=== PATIENT | male | born 1960 | race African-American/Black ===

== ENCOUNTER → 2021-07-10 | Outpatient (CLI) | payer OTHER, MEDICAID ==
[~2021-07-10] MED LIST: ALBU8.5H INH; LEVE750T5 PO; LEVOTAB10 PO; LITH300C PO; LORA2TAB14 PO; MONT10TA10 PO; QUET100T2 PO; ZOLO100T PO; ZONI100C17 PO
== END ==
LOC: M LABSMTC 10:18
PROVIDERS: ATTEND Anesthesiology
DX: Z01.812 Encounter for preprocedural laboratory examination (principal); Z20.822 Contact with and (suspected) exposure to COVID-19

== ENCOUNTER 2021-07-15 08:40 | Day surgery (SDC) | payer OTHER, MEDICAID ==
[~2021-07-15] VITALS: Ht 165.1 cm; Wt 74.8 kg
[~2021-07-15 08:40] MED LIST changes: +LIDOCAINE 2% 100MG/5ML SDV (FOR ANES.) As Ordered ONE; +NS 1,000 ML IV ONE; +fentaNYL 100 MCG/2 ML INJECTION (J3010) As Ordered ONE; +propofoL 500 MG/50 ML VIAL As Ordered ONE
--- OUTSIDE RECORDS SUMMARY | 2021-07-15 08:45 | CCD | Continuity of Care Document ---
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 Onset: 03/04/2021 Social History Type Date Description Comments Sex Unknown ETOH Use Denies alcohol use Tobacco Use Start: Unknown Patient is a current smoker, smo kes every day 1/4ppd Allergies, Adverse Reactions, Alerts Description No Known Drug Allergies Medications Active Medications SIG Qnty Indications Ordering Provide r Date Keppra 750mg Tablets 2tabs bi d Unknown Levocetirizine Dihydrochloride 5mg Tablets 1tab qd Unknown [place] Carbonate ER 300mg Tablets ER 1tab bid Unknown Lorazepam 2mg Tablets 1tab q8 h prn Unknown Seroquel 50mg Tablets 1tab qd Unknown Quetiapine Fumarate 100mg Tablets Unknown Immunizations Description No Information Available Vital Signs Date Vital Result Comment 05/06/2021 11:29am BP Systolic 118 mmHg BP Diastolic 78 mmHg Height 65 inches 5'5" Weight 160.00 lb BMI (Body Mass Index) 26.6 kg/m2 [place] Body Weight 136 lb Weight 72.576 kg BSA (Body Surface Area) 1.80 m2 Results Description No Information Available Procedures Description No Information Available Medical Devices Description No Information Available Encounters Description No Information Available Assessments Date Code Description Provider 05/06/2021 R94.5 Abnormal results of liver functi on studies Kayden Ramirez M.D. 05/06/2021 B18.2 Chronic viral hepatitis C Edgar Ramirez M.D. 05/06/2021 Z12.11 Encounter for screening for dean gnant neoplasm of colon Kayden Ramirez M.D. Plan of Treatment No Information Available Functional Status Description No Information Available Mental Status Description No Information Available Referrals Refer to Dr Reason for Referral Status Appt Date Kayden Ramirez M.D. HEP C, ELEVATED LIVER ENZYMES, CO LO SCREEN Scheduled 03/04/2021 [facility] [address] [facility], [address] [place] [address] [phone]
--- OUTSIDE RECORDS SUMMARY | 2021-07-15 08:45 | CCD | Continuity of Care Document ---
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 Onset: 03/04/2021 Social History Type Date Description Comments Sex Unknown ETOH Use Denies alcohol use Tobacco Use Start: Unknown Patient is a current smoker, smo kes every day 4ppd Allergies, Adverse Reactions, Alerts Description No Known Drug Allergies Medications Active Medications SIG Qnty Indications Ordering Provide r Date Clenpiq 10-3.5-12mg-GM -GM/160ML S olution follow pre-procedure instructions. start day before procedure. (if not covered by insurance please fill gavilyte script). 320ml Alejandro Ramirez M.D. 05/28/2021 Gavilyte-N With Flavor Pack 420gm Solution Rec drink the liquid as per the pre-procedur e instructions. ( fill this script only if clenpiq is not covered by insurance). 4000ml Kayden Ramirez M.D. 05/28/[address] take 4 tablets together as per bowel preparation instructions. 4tabs Kayden Ramirez M.D. 05/28/2021 Keppra 750mg Tablets 2tabs bi d Unknown Levocetirizine Dihydrochloride 5mg Tablets 1tab qd Unknown [place] Carbonate ER 300mg Tablets ER 1tab bid Unknown Lorazepam 2mg Tablets 1tab q8 h prn Unknown Seroquel 50mg Tablets 1tab qd Unknown Seroquel 100mg Tablets 1tab q d Unknown Ventolin HFA 108(90Base) mcg/Act A erosol 2 puffs qid/prn Unknown Zoloft 100mg Tablets 2tabs qd Unknown Zonisamide 100mg Capsules 1ca p qd Unknown Immunizations Description No Information Available Vital Signs Date Vital Result Comment 05/06/2021 11:29am BP Systolic 118 mmHg BP Diastolic 78 mmHg Height 65 inches 5'5" Weight 160.00 lb BMI (Body Mass Index) 26.6 kg/m2 [place] Body Weight 136 lb Weight 72.576 kg BSA (Body Surface Area) 1.80 m2 Results Description No Information Available Procedures Date Code Description Status 05/06/2021 88260 Office/Outpatient New Moderate M DM 45-59 Minutes Completed Medical Devices Description No Information Available Encounters Type Date Location Provider Dx Diagnosis Office Visit 05/06/2021 10:50a [facility] ctice Kayden Ramirez M.D. R94.5 Abnormal results of liver fu nction studies B18.2 Chronic viral hepatitis C Z12.11 Encounter for screening for malignant neoplasm of colon Assessments Date Code Description Provider 05/06/2021 R94.5 Abnormal results of liver functi on studies Kayden Ramirez M.D. 05/06/2021 B18.2 Chronic viral hepatitis C Edgar Ramirez M.D. 05/06/2021 Z12.11 Encounter for screening for dean gnant neoplasm of colon Kayden Ramirez M.D. Plan of Treatment Future Appointment(s):* 07/15/2021 2:00 am - Kayden Ramirez M.D. at [facility] Functional Status Description No Information Available Mental Status Description No Information Available Referrals Refer to Reason for Referral Status Appt Date Kayden Ramirez M.D. HEP C, ELEVATED LIVER ENZYMES, CO LO SCREEN Scheduled 03/04/2021 [facility] [address] [facility] [facility], [address] [place] [address] [phone]
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
[2021-07-15] MEDS ORDERED: MIDAZOLAM INJ 2MG/2ML VIAL (J2250 PER 1MG) As Ordered ONE (09:50)
[2021-07-15] MEDS ORDERED: propofoL 200 MG/20 ML VIAL As Ordered ONE (10:07)
--- NOTE | 2021-07-15 10:42 | ROOR ---
Patient Name: Fernando Frederick Procedure Date: 07/15/2021 9:39 AM Date of : 1960 Age: 61 Room: [facility] Gender: Male Note Status: Finalized Procedure: Upper GI endoscopy Indications: Cirrhosis with suspected esophageal varices Providers: Kayden Ramirez MD Referring MD: Jesica Quevedo Np Requesting Provider: Medicines: Monitored Anesthesia Care Complications: No immediate complications. Procedure: Pre-Anesthesia Assessment: - Prior to the procedure, a History and Physical was performed, and patient medications and allergies were reviewed. The patient is competent. The risks and benefits of the procedure and the sedation options and risks were discussed with the patient. All questions were answered and informed consent was obtained. Patient identification and proposed procedure were verified by the physician, the nurse and the anesthesiologist in the procedure room. Mental Status Examination: alert and oriented. Airway Examination: normal oropharyngeal airway and neck mobility. Respiratory Examination: clear to auscultation. CV Examination: normal. Prophylactic Antibiotics: The patient does not require prophylactic antibiotics. Prior Anticoagulants: The patient has taken no previous anticoagulant or antiplatelet agents. ASA Grade Assessment: II - A patient with mild systemic disease. After reviewing the risks and benefits, the patient was deemed in satisfactory condition to undergo the procedure. The anesthesia plan was to use monitored anesthesia care (MAC). Immediately prior to administration of medications, the patient was re-assessed for adequacy to receive sedatives. The heart rate, respiratory rate, oxygen saturations, blood pressure, adequacy of pulmonary ventilation, and response to care were monitored throughout the procedure. The physical status of the patient was re-assessed after the procedure. The Endoscope was introduced through the mouth, and advanced to the second part of duodenum. The upper GI endoscopy was accomplished without difficulty. The patient tolerated the procedure well. Findings: There is no endoscopic evidence of varices in the entire esophagus. The Z-line was regular and was found at the gastroesophageal junction. Diffuse moderate inflammation characterized by congestion (edema), erythema, friability and granularity was found in the gastric fundus, in the gastric body and in the gastric antrum. Biopsies were taken with a cold forceps for Helicobacter pylori testing. Verification of patient identification for the specimen was done by the physician and nurse using the patient's name, date and medical record number. Estimated blood loss was minimal. The duodenal bulb and second portion of the duodenum were normal. Impression: - Z-line regular, at the gastroesophageal junction. - Gastritis. Biopsied. - Normal duodenal bulb and second portion of the duodenum. Recommendation: - Patient has a contact number available for emergencies. The signs and symptoms of potential delayed complications were discussed with the patient. Return to normal activities tomorrow. Written discharge instructions were provided to the patient. - High fiber diet and low sodium diet. - Continue present medications. - Await pathology results. - Return to GI clinic in 2 months. - Return to primary care physician. Procedure Code(s): --- Professional --- 30363, Esophagogastroduodenoscopy, flexible, transoral; with biopsy, single or multiple Diagnosis Code(s): --- Professional --- K29.70, Gastritis, unspecified, without bleeding K74.60, Unspecified cirrhosis of liver CPT copyright 2019 [employer]. All rights reserved. The codes documented in this report are preliminary and upon ship's captain review may be revised to meet current compliance requirements. Kayden Ramirez MD Kayden Ramirez MD 07/15/2021 10:42:00 AM Electronically signed by Kayden Ramirez MD Number of Addenda: 0 Note Initiated On: 07/15/2021 9:39 AM Estimated Blood Loss: Estimated blood loss was minimal.
[2021-07-15 10:56] VITALS: BP 109/71
--- NOTE | 2021-07-15 11:20 | ROOR ---
Patient Name: Fernando Frederick Procedure Date: 07/15/2021 9:39 AM Date of : 1960 Age: 61 Room: [facility] Gender: Male Note Status: Finalized Procedure: Colonoscopy Indications: Screening for colorectal malignant neoplasm Providers: Kayden Ramirez MD Referring MD: Jesica Quevedo Np Requesting Provider: Medicines: Monitored Anesthesia Care Complications: No immediate complications. Procedure: Pre-Anesthesia Assessment: - Prior to the procedure, a History and Physical was performed, and patient medications and allergies were reviewed. The patient is competent. The risks and benefits of the procedure and the sedation options and risks were discussed with the patient. All questions were answered and informed consent was obtained. Patient identification and proposed procedure were verified by the physician, the nurse and the anesthesiologist in the procedure room. Mental Status Examination: alert and oriented. Airway Examination: normal oropharyngeal airway and neck mobility. Respiratory Examination: clear to auscultation. CV Examination: normal. Prophylactic Antibiotics: The patient does not require prophylactic antibiotics. Prior Anticoagulants: The patient has taken no previous anticoagulant or antiplatelet agents. ASA Grade Assessment: II - A patient with mild systemic disease. After reviewing the risks and benefits, the patient was deemed in satisfactory condition to undergo the procedure. The anesthesia plan was to use monitored anesthesia care (MAC). Immediately prior to administration of medications, the patient was re-assessed for adequacy to receive sedatives. The heart rate, respiratory rate, oxygen saturations, blood pressure, adequacy of pulmonary ventilation, and response to care were monitored throughout the procedure. The physical status of the patient was re-assessed after the procedure. The Colonoscope was introduced through the anus and advanced to the terminal ileum, with identification of the appendiceal orifice and IC valve. The colonoscopy was performed without difficulty. The patient tolerated the procedure well. The quality of the bowel preparation was good. The terminal ileum, ileocecal valve, appendiceal orifice, and rectum were photographed. Scope insertion time was 2 minutes. Scope withdrawal time was 9 minutes. The total duration of the procedure was 12 minutes. Findings: The perianal and digital rectal examinations were normal. The terminal ileum appeared normal. Non-bleeding external and internal hemorrhoids were found during retroflexion. The hemorrhoids were medium-sized. No other significant abnormalities were identified in a careful examination of the remainder of the colon. Impression: - The examined portion of the ileum was normal. - Non-bleeding external and internal hemorrhoids. - No specimens collected. Recommendation: - Patient has a contact number available for emergencies. The signs and symptoms of potential delayed complications were discussed with the patient. Return to normal activities tomorrow. Written discharge instructions were provided to the patient. - High fiber diet. - Continue present medications. - Await pathology results. - Repeat colonoscopy in 10 years for screening purposes. - Return to GI clinic in 2 months. - Return to primary care physician. Procedure Code(s): --- Professional --- 72027, Colonoscopy, flexible; diagnostic, including collection of specimen(s) by brushing or washing, when performed (separate procedure) Diagnosis Code(s): --- Professional --- Z12.11, Encounter for screening for malignant neoplasm of colon K64.8, Other hemorrhoids CPT copyright 2019 [employer]. All rights reserved. The codes documented in this report are preliminary and upon thermostat machine tender review may be revised to meet current compliance requirements. Kayden Ramirez MD Kayden Ramirez MD 07/15/2021 11:20:04 AM Electronically signed by Kayden Ramirez MD Number of Addenda: 0 Note Initiated On: 07/15/2021 9:39 AM Estimated Blood Loss: Estimated blood loss was minimal.
== END 2021-07-15 11:02 | disposition home or self-care (01) ==
LOC: M OPP 08:40
PROVIDERS: ATTEND Internal Medicine Gastroenterology
DX: Z12.11 Encounter for screening for malignant neoplasm of colon (principal); K64.8 Other hemorrhoids; K29.70 Gastritis, unspecified, without bleeding; B96.81 Helicobacter pylori [H. pylori] as the cause of diseases classified elsewhere; K74.60 Unspecified cirrhosis of liver; Z79.899 Other long term (current) drug therapy; F17.210 Nicotine dependence, cigarettes, uncomplicated
CPT/HCPCS: 43239; 88305; 88342; G0121; J2250